=== PATIENT | male | born 1990 | race Two or more races ===

== ENCOUNTER 2021-07-16 16:55 | Outpatient (CLI) | payer OTHER | END 2021-07-16 16:59 | disposition home or self-care (01) | LOC: PPH VACUNA 16:55 | PROVIDERS: ATTEND Emergency Medicine Pediatric Emergency Medicine | DX: Z23 Encounter for immunization (principal) ==

== ENCOUNTER 2021-08-11 17:24 | Emergency (ER) | payer OTHER ==
[~2021-08-11] VITALS: Ht 172.7 cm; Wt 181.4 kg
[2021-08-11] MEDS ORDERED: IBERSARTAN (17:52)
== END 2021-08-11 20:09 | disposition home or self-care (01) ==
LOC: ER 17:24
DX: R07.89 Other chest pain (principal); I10 Essential (primary) hypertension; Z03.818 Encounter for observation for suspected exposure to other biological agents ruled out